=== PATIENT | male | born 1965 | race African-American/Black ===

== ENCOUNTER 2018-05-04 10:46 | Day surgery (SDC) | payer OTHER ==
[2018-05-04] MEDS ORDERED: diphenhydrAMINE 25 MG CAP PO ONE ×2 (10:50→11:07)
[2018-05-04] MEDS ORDERED: NS 1,000 ML IV ONE (10:50)
[2018-05-04] MEDS ORDERED: FAMOTIDINE 20 MG TAB PO ONE (10:50)
[2018-05-04] MEDS ORDERED: ASPIRIN EC 325 MG TAB PO ONE ×2 (10:50→11:07)
[2018-05-04] MEDS ORDERED: DIAZEPAM 5 MG TAB PO ONE (10:50)
[2018-05-04] MEDS ORDERED: FAMOTIDINE 20 MG TAB ONE (11:07)
[2018-05-04] MEDS ORDERED: DIAZEPAM 5 MG TAB ONE (11:08)
[2018-05-04 11:40] LABS: PLATELET COUNT 196 10^3/uL (150-400)
[2018-05-04 11:50] LABS: INR 0.94 (0.83-1.16); PROTIME(PATIENT) 12.8 SEC (12.0-15.0)
[2018-05-04] MEDS ORDERED: LIDOCAINE 1% 300 MG/30 ML SDV ONE (12:20)
[2018-05-04] MEDS ORDERED: IOPAMIDOL (ISOVUE-370) 150 ML BTL IV ONE (12:21)
[2018-05-04] MEDS ORDERED: MIDAZOLAM 2 MG/2 ML VIAL ONE (12:21)
[2018-05-04] MEDS ORDERED: fentaNYL 100 MCG/2 ML INJ ONE (12:21)
--- NOTE | 2018-05-04 12:34 | PDPROPOC ---
Sedation Plan of Care Sedation Plan of Care: mental status noted, patient educated of risks, benefits , alternatives, patient can tolerate sedation ASA Classification: ASA 2 Planned drugs: fentanyl, midazolam Mallampati Score: Class 2 Mallampati Reference Image: Patient passed 3-3-2 rule?: Yes
--- NOTE | 2018-05-04 12:34 | PDHPUP ---
History & Physical Update H&P update statement: This history and physical update is based on an assessment of the patient which was completed after admission or registration (within 24 hours), but prior to the surgery/procedure. H&P update: H&P reviewed & patient examined, no change in patient's condition since H&P completed
[2018-05-04] MEDS ORDERED: BIVALIRUDIN 250 MG/5 ML VIAL IV ONE (13:03)
[2018-05-04] MEDS ORDERED: ADENOSINE 90 MG/30 ML VIAL IV ONE (13:03)
[2018-05-04] MEDS ORDERED: HYDROCODONE/APAP 5/325 TAB PO PRN (13:33)
[2018-05-04] MEDS ORDERED: NITROGLYCERIN 0.4 MG BTL SL PRN (13:33)
[2018-05-04] MEDS ORDERED: ATROPINE SULFATE 1 MG/10 ML SYR IVP PRN (13:33)
[2018-05-04] MEDS ORDERED: ONDANSETRON 4 MG/2 ML VIAL IVP PRN (13:33)
[2018-05-04] MEDS ORDERED: OXYCODONE/APAP 5/325 TAB PO PRN (13:33)
--- NOTE | 2018-05-04 14:12 | CPIP ---
DATE OF PROCEDURE: 05/04/2018 INDICATION FOR PROCEDURE: Positive stress test, elevated calcium score. PROCEDURES: 1. right groin sheathogram. 2. Bilateral selective coronary angiography. . 3. Left ventriculogram. 4. Right groin closure with 6-Martiniquais Angio-Seal. Briefly, this is a 52-year-old male with history of positive stress testing, elevated calcium score, and strong family history of coronary artery disease. Given these findings, the patient consented fo r left heart catheterization. DESCRIPTION OF PROCEDURE: After informed consent was obtained, the patient was brought to [facility] where the right groin was prepped and draped in sterile fashion. Using lidocaine, a short 6-Martiniquais sheath was introduced in the right femoral artery verified angiographically. Through a 6-Martiniquais sheath a JL 4 catheter was advanced to left coronary artery. Images of the left coronary artery revealed normal left main. There was a ramus intermedius which came off which was healthy and free of disease. Ther e was a left circumflex system, which was a left dominant, which gave off a marginal [address] min[address] to what appeared to be small LPDA and LPLS distally. The LAD had diffuse 10% to 20% plaque disease throughout its course, but no high-grade obstruction. After these images were obtained the J L4 catheter was removed. The JR4 catheter was advanced to the right coronary artery. Images of the right coronary artery revealed a nondominant right coronary artery with no significant disease. The JR4 catheter was removed. The pigtail catheter advanced left ventricle. LVEDP is 15 mmHg. Left rick triculogram obtained in the [place] projection showed EF of 50% to 55% with no wall motion abnormalities. No pullback through the LV aorta. Pigtail catheter was removed over an 0.035 wire. Right groin was closed with 6-Martiniquais sheath. The patient tolerated the procedure well with no complications. IMPRESSION: 1. Mild noncritical coronary artery disease mainly in the left anterior descending ranging from 10% to 20%. 2. Left dominant circulation. 3. Normal ejection fraction. PLAN: The patient should have aggressive risk factor modification, i.e., lipid control, glucose cont rol and blood pressure control. He will follow up in the office in 1 weeks' time. /[id number]/MODL
--- NOTE | 2018-05-04 16:13 | CPEKG ---
Test Reason : OPEN Blood Pressure : / mmHG Vent. Rate : 043 BPM Atrial Rate : 042 BPM P-R Int : 190 ms QRS Dur : 095 ms QT Int : 487 ms P-R-T Axes : 064 007 010 degrees QTc Int : 412 ms Sinus bradycardia Confirmed by Johnny Reyes ([id number]) on 05/04/2018 4:13:04 PM Referred By: Confirmed By:Johnny Reyes
== END 2018-05-04 17:16 | disposition home or self-care (01) ==
LOC: FCATH 10:46
PROVIDERS: ATTEND Internal Medicine Cardiovascular Disease
DX: I25.10 Atherosclerotic heart disease of native coronary artery without angina pectoris (principal); R93.1 Abnormal findings on diagnostic imaging of heart and coronary circulation; R94.39 Abnormal result of other cardiovascular function study; I10 Essential (primary) hypertension; E78.5 Hyperlipidemia, unspecified; E55.9 Vitamin D deficiency, unspecified; Z79.82 Long term (current) use of aspirin; Z87.891 Personal history of nicotine dependence; Z82.49 Family history of ischemic heart disease and other diseases of the circulatory system; Z98.1 Arthrodesis status
CPT/HCPCS: C1760; J0153; J0583; J1644; J2250; J3010; Q9967